=== PATIENT | male | born 1970 | race Caucasian/White ===

== ENCOUNTER 2021-01-06 02:50 | Outpatient (CLI) | payer SELFPAY ==
[2021-01-06 12:34] LABS: Calculated LDL 150 mg/dL (<100); Cholesterol 224 mg/dL (<200); HDL Cholesterol 55 mg/dL (40-60); Triglyceride 96 mg/dL (<150)
[2021-01-06 12:39] LABS: Hemoglobin A1C 5.7 % (<5.7)
== END 2021-01-06 02:51 | disposition home or self-care (01) ==
PROVIDERS: Nurse Practitioner Family; PCP Emergency Medicine; Visit Provider Emergency Medicine
DX: Z13.220 Encounter for screening for lipoid disorders (principal); Z13.1 Encounter for screening for diabetes mellitus
CPT/HCPCS: 36415; 80061; 83036

== ENCOUNTER 2023-04-11 21:55 | Outpatient (REF) | payer SELFPAY ==
[2023-04-11 22:38] LABS: Anion Gap 10.7 mmol/L (3-11); BUN 19 mg/dL (7-18); CO2 24.3 mmol/L (21.0-32.0); CREATININE 1.2 mg/dL (0.70-1.30); Calcium 9.1 mg/dL (8.5-10.1); Chloride 105 mmol/L (98-107); Estimated GFR 71.86 (mL/min/1.73m2); Glucose 101 mg/dL (74-106); Potassium 3.9 mmol/L (3.5-5.1); Sodium 140 mmol/L (136-145)
== END 2023-04-11 21:56 | disposition home or self-care (01) ==
LOC: LBN 21:55
PROVIDERS: PCP Nurse Practitioner Family; Visit Provider Nurse Practitioner Family
DX: I10 Essential (primary) hypertension (principal)
CPT/HCPCS: 80048

== ENCOUNTER 2023-04-12 11:35 | Outpatient (CLI) | payer SELFPAY ==
--- NOTE | 2023-04-12 13:22 | DI.RAD_ITS ---
Exam(s) XR KNEE RT 3V AP,LAT,JILL EXAM: XR KNEE RT 3V AP,LAT,JILL CLINICAL HISTORY: atraumatic RT KNEE PAIN, M25.561. TECHNIQUE: 2D digital imaging was performed. Three views. COMPARISON: No exams were available for comparison FINDINGS: BONES: No acute fracture is present. No bony destructive lesion is seen. JOINTS: There is moderate narrowing of the medial femoral tibial joint space. There is mild periarti cular spurring. No joint effusion is seen. SOFT TISSUE: Normal. 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 DATA REPOSITORY: RADIATION DOSE DELIVERED:
--- NOTE | 2023-04-12 13:22 | DI.RAD_ITS ---
Exam(s) XR SHOULDER LT COMPLETE 2+V EXAM: XR SHOULDER LT COMPLETE 2+V CLINICAL HISTORY: atraumatic LT SHOULDER PAIN, M25.512. TECHNIQUE: 2D digital imaging was performed. Five views. COMPARISON: CR RIGHT SHOULDER COMPLETE from 07/16/2012 FINDINGS: BONES: No acute fracture is present. No bony destructive lesion is seen. JOINTS: No dislocation present. [id number] spurring of the AC joint. Mild spurring at the gle noid. Glenohumeral joint space is maintained. SOFT TISSUE: Normal. IMPRESSION: Mild degenerative changes. DATA REPOSITORY: RADIATION DOSE DELIVERED:
== END 2023-04-12 11:55 ==
LOC: DI 11:36
PROVIDERS: PCP Nurse Practitioner Family; Visit Provider Nurse Practitioner Family
DX: M19.012 Primary osteoarthritis, left shoulder (principal); M17.11 Unilateral primary osteoarthritis, right knee
CPT/HCPCS: 73562; 73030

== ENCOUNTER 2024-10-29 07:29 | Observation (INO) | payer SELFPAY ==
[2024-10-29] VITALS (22 sets, daily range): BP systolic 108–178; BP diastolic 68–97; PULSE 52–90; RESP 11–21; TEMP 35.8–36.8; O2SAT 90–97
--- NOTE | 2024-10-29 07:30 | RT.EKG_ITS ---
APPROVED REPORT Exam: Resting ECG Reason for Exam: Chest Pain Patient Location: E HR:84 bpm ECG Measurements Heart Rate 84 AXIS DE 173 P 41 QRSd 110 QRS 47 QT 368 T 49 QTc 435 Conclusion Sinus rhythm...normal P axis, V-rate 60- 99
[2024-10-29 08:07] LABS: Abs Immature Grans 0.05 10^3/uL (0.0-0.06); Absolute Basophil Count 0.04 10^3/uL (0.0-0.2); Absolute Lymphocyte Count 1.82 10^3/uL (1.2-3.4); Absolute Monocyte Count 0.69 10^3/uL (0.1-0.8); Absolute Neutrophil Count 4.64 10^3/uL (1.2-6.7); Basophils % 0.5 %; HCT 45.9 % (40.0-50.0); HGB 15.6 g/dL (13.5-17.5); Immature Grans % 0.7 %; Lymphocytes % 24.1 %; MCH 31.4 pg (27.0-33.0); MCV 92 fL (80-95); MPV 8.7 fL (8.0-11.0); Monocytes % 9.2 %; Neutrophils % 61.5 %; Platelet Count 258 10^3/uL (130-400); RBC 4.97 10^6/uL (4.36-5.78); RDW 11.8 % (11.8-14.1); RDW-SD 39.9 fL; WBC 7.54 10^3/uL (4.4-10.8)
[2024-10-29 08:20] LABS: PTT Activated 24.7 sec (20.6-30.2)
[2024-10-29 08:28] LABS: ALT 47 U/L (16-63); AST 26 U/L (15-37); Albumin 3.9 g/dL (3.4-5.0); Alkaline Phosphatase 93 U/L (46-116); Anion Gap 9.1 mmol/L (3-11); BUN 20 mg/dL (7-18); Bilirubin, Total 0.54 mg/dL (0.2-1.0); CO2 24.9 mmol/L (21.0-32.0); CREATININE 1.1 mg/dL (0.70-1.30); Calcium 9.1 mg/dL (8.5-10.1); Chloride 105 mmol/L (98-107); Estimated GFR 79.28 (mL/min/1.73m2); Glucose 111 mg/dL (74-106); Magnesium 1.7 mg/dL (1.8-2.4); Sodium 139 mmol/L (136-145); Total Protein 7.7 g/dL (6.4-8.2); Troponin I 5 ng/L (<or=76)
--- NOTE | 2024-10-29 08:37 | ED.GENADUL_ITS ---
Discharge Plan Disposition Patient Disposition: Admit to [facility] Discharge Details Clinical Impression: Acute chest pain, Hypertension Admit Date/Time: 10/29/24 11:07 Admit Provider: Louis Garduno Attending Provider: Louis Garduno Primary Care Provider: Mark Guerrero ED Provider: Ozzy Luu Discharge Data Discharge Date/Time-TO BE ENTERED AT DEPARTURE: 10/29/24 11:58 HPI General Mode of arrival: ambulatory . Date/Time Provider Initiated Documentation: 10/29/24 07:35 . Limitations to Documentation: no limitations . Information obtained by: patient . HPI Narrative: 54-year-old male with history of hypertension, hyperlipidemia, asthma, obesity, here with chief complaint of chest pain. Patient notes he started to experience left upper arm pain radiating to his left chest around 6 AM. Pain came on while ambulating but not during exertional activity and has persisted. Pain initially was severe 8/10 and now more dull 2/10 but still present. Pain feels different than typical aches and pains. No associated shortness of breath. No nausea. No leg swelling or calf pain. No recent immobility. Patient denies having cardiac stress test in the past. Related Data Home Medications ?Medication ?Instructions ?Recorded ?Confirmed nebulizers (MisterNeb Nebulizer 01/31/13 05/02/24 System) albuterol sulfate 2.5 mg/3 mL 2.5 mg (3 mL) inhalation Q6H PRN 05/02/24 10/29/24 (0.083 %) solution for nebulization ##1 lisinopril 10 mg tablet 10 mg PO DAILY #90 tabs 05/02/24 10/29/24 mometasone 100 mcg/actuation HFA 1 puff inhalation BID #13 grams 05/02/24 aerosol inhaler (Asmanex HFA) albuterol sulfate 90 mcg/actuation 2 puff inhalation QID PRN 10/29/24 10/29/24 aerosol inhaler Previous Rx's ?Medication ?Instructions ?Recorded albuterol sulfate 2.5 mg/3 mL 2.5 mg (3 mL) inhalation Q6H PRN 05/02/24 (0.083 %) solution for nebulization ##1 lisinopril 10 mg tablet 10 mg PO DAILY #90 tabs 05/02/24 mometasone 100 mcg/actuation HFA 1 puff inhalation BID #13 grams 05/02/24 aerosol inhaler (Asmanex HFA) Allergies Allergy/AdvReac Type Severity Reaction Status Date / Time No Known Allergies Allergy Verified 10/29/24 07:38 General Stated Complaint: Chest Pain ERAN: 3 Review of Systems All systems reviewed & are unremarkable except as noted in HPI and below Constitutional Constitutional: Denies fever(s) Cardiovascular Cardiovascular: Reports as per HPI Exam Const General: cooperative and no acute distress HENWV Mouth: moist mucous membranes Eyes Conjunctivae: normal conjunctivae Sclera: normal sclerae Resp Auscultation: clear to auscultation bilaterally, no rales, no rhonchi and no wheezes Cardio Rate: regular rate and not tachycardic Rhythm: regular rhythm GI Palpation: soft, not firm, no guarding, no masses, not rigid and nontender Skin General skin exam: no rashes or lesions noted Neuro General: patient alert, patient awake and tone normal Extrem General: no calf tenderness and no edema Psych Appearance: grossly normal Course Vital Signs Vital signs: Vital Signs Temperature 36.8 C 10/29/24 07:33 Pulse 87 10/29/24 07:33 Respiratory Rate 18 10/29/24 07:33 Blood Pressure 178/86 H 10/29/24 07:33 Pulse Oximetry 96 10/29/24 07:33 Temperature 36.8 C 10/29/24 07:33 Pulse 87 10/29/24 07:33 Respiratory Rate 18 10/29/24 07:52 Respiratory Effort Normal 10/29/24 07:52 Respiratory Depth Normal 10/29/24 07:52 Respiratory Pattern Normal 10/29/24 07:52 Blood Pressure 178/86 H 10/29/24 07:33 Pulse Oximetry 96 10/29/24 07:33 Pain Level 5 10/29/24 07:52 Lab/Test Results Lab/Test Results: Laboratory Tests Range/Units 10/29/24 07:47 WBC (4.4-10.8) 10^3/uL 7.54 RBC (4.36-5.78) 10^6/uL 4.97 Hgb (13.5-17.5) g/dL 15.6 Hct (40.0-50.0) % 45.9 MCV (80-95) fL 92 MCH (27.0-33.0) pg 31.4 MCHC (32.0-36.0) % 34.0 RDW (11.8-14.1) % 11.8 Plt Count (130-400) 10^3/uL 258 MPV (8.0-11.0) fL 8.7 Immature Gran % % 0.7 Neutrophils % % 61.5 Lymphocytes % % 24.1 Monocytes % % 9.2 Eosinophils % % 4.0 Basophils % % 0.5 Nucleated RBC % (0.0-0.3) % 0.0 Absolute Neutrophils (1.2-6.7) 10^3/uL 4.64 Absolute Lymphocytes (1.2-3.4) 10^3/uL 1.82 Absolute Monocytes (0.1-0.8) 10^3/uL 0.69 Absolute Eosinophils (0.0-0.7) 10^3/uL 0.30 Absolute Basophils (0.0-0.2) 10^3/uL 0.04 APTT (20.6-30.2) sec 24.7 Sodium (136-145) mmol/L 139 Potassium (3.5-5.1) mmol/L 4.0 Chloride (98-107) mmol/L 105 Carbon Dioxide (21.0-32.0) mmol/L 24.9 Anion Gap (3-11) mmol/L 9.1 BUN (7-18) mg/dL 20 H Creatinine (0.70-1.30) mg/dL 1.1 Est GFR (CKD-EPI 2020) (mL/min/1.73m2) 79.28 Glucose (74-106) mg/dL 111 H Calcium (8.5-10.1) mg/dL 9.1 Magnesium (1.8-2.4) mg/dL 1.7 L Total Bilirubin (0.2-1.0) mg/dL 0.54 AST (15-37) U/L 26 ALT (16-63) U/L 47 Alkaline Phosphatase (46-116) U/L 93 Troponin I (<or=76) ng/L 5 Total Protein (6.4-8.2) g/dL 7.7 Albumin (3.4-5.0) g/dL 3.9 Medical Decision Making 840 --54-year-old male with history of hypertension, hyperlipidemia, obesity, asthma, here with left upper arm and left chest pain that started around 6 AM today, now dull and mild ache. Patient is hypertensive on arrival. He saturating well in no respiratory distress. Screening EKG was reviewed and interpreted by me: Please report, sinus rhythm 84 bpm, normal axis, nondiagnostic. Concern for ACS. Patient has significant risk factors and elevated heart score. Plan to check troponin and trend. I will give aspirin and nitroglycerin sublingual. -- Chest x-ray interpreted by radiology: No acute findings. 1058 -- Patient reassessed. Initial trop and delta 1 hr trop negative. -- Given elevated HEART score with significant risk factors and cocnerning history consider unstable angina - plan to hospitalize for further monitoring and serial troponins and cardiac stress testing. Case discussed with hospitalist Dr. Garduno. He will accept the patient for admission. Lab Data Lab results reviewed: Yes I reviewed the patient's lab results. Quality:SDOH Health Related Social Needs: Health related social needs problems related to housin g/economic circumstances (Z59.89) PFSH All Active Problems (Updated 11/05/24 @ 07:57 by Ozzy Luu MD) Acute chest pain (Acute) Bilateral impacted cerumen (Acute) Left shoulder pain (Acute) Right knee pain (Acute) Obesity (BMI 30-39.9) (Acute) Asthma (Chronic) Hyperlipemia (Acute) Hypertension (Chronic) Family History Mother Essential hypertension Father Asthma Sister No problems noted. Sister No problems noted. Sister No problems noted. Sister No problems noted. Brother Neurological disease Brother Neurological disease Brother Neurological disease Brother Neurological disease Brother Neurological disease Social History Smoking/Tobacco Use Status: Current every day Tobacco Type: smokeless tobacco Tobacco: How many years used: 40 Smokeless tobacco user: snuff Quit status: not considering quitting Second Hand Exposure: Yes Smoking risk assessment performed?: Yes Alcohol Intake: current Alcohol Intake frequency: 3 or more drinks per day Alcohol type: beer Drug use: Never Substance use type: does not use Adopted: No Caregiver/Support person: No Household members: none Housing: house Number of Children: 3 number of grandchildren: 1 Communication Needs: Corrective Lenses Education Level: high school Do you need help understanding health information?: Rarely 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 Pets and animals: No Sexually active: Yes Do you think of yourself as: straight/heterosexual Current gender identity: male What is your relationship status?: How often do you talk on the phone with friends or family?: twice per week How often do you get together with friends or relatives?: three or more times per week How often do you attend roman catholic or mandaen services?: decline to answer Do you belong to any clubs or organized social groups?: yes Panel score (0-1 are the most socially isolated patients): 2 What type of physical activity do you participate in: none Frequency: does not exercise Noelle/Jew: None Special noelle needs: No Seatbelt use: always Drive intox or ride w/intox dedicated truck driver: No Firearms in home: Yes Firearms unloaded and locked: Yes Do you feel safe at home: Yes Victim of physical abuse: No Victim of emotional abuse: No Victim of sexual abuse: No Would you like helpful sources: No PAWSS Have you Been Recently Intoxicated or Drunk Within the Last 30 days?: No Have you Ever Experienced Previous Episodes of Alcohol Withdrawal?: No Have you ever Experienced Withdrawal Seizures?: No Have you ever Experienced Delirium Tremens(DT)s?: No Have you ever undergone Alcohol Rehabilitation Treatment (i.e, inpt ot outpatient treatment programs)?: No Have you ever Experienced Blackouts?: No Have you ever Combined Alcohol with other Downers within the last 90 days?: No Have you ever Combined Alcohol with any other Substance of Abuse during the last 90 days?: No Result: 0
[2024-10-29 08:39] LABS: D-Dimer 256 ng/mlFEU (<500)
--- NOTE | 2024-10-29 08:45 | DI.RAD_ITS ---
Exam(s) XR PORTABLE CHEST AP EXAM: XR PORTABLE CHEST AP CLINICAL HISTORY: CP TECHNIQUE: 2D digital imaging was performed. COMPARISON: No exams were available for comparison FINDINGS: LUNGS: Clear. No pleural abnormality seen. HEART: Normal size. AORTA: Normal diameter. BONES: Unremarkable for age. Soft tissues: Unremarkable. IMPRESSION: No acute findings. DATA REPOSITORY: RADIATION DOSE DELIVERED:
[2024-10-29] MEDS: Aspirin 81 MG CHEW 324 MG CH (08:49)
[2024-10-29 09:20] LABS: Troponin I 4 ng/L (<or=76)
[2024-10-29 11:36] LABS: Troponin I < 4 ng/L (<or=76)
--- NOTE | 2024-10-29 11:55 | W.PC.ACHO ---
Registration Status: Primary Language: Preferred Language: ED Information & Data Chief Complaint Chest Pain 10/29/24 08:42 Triage Note 5/10 CP radiate down left 10/29/24 07:33 arm, started x1hr ago walking at work when started Most Recent Vital Signs Temperature 36.8 C 10/29/24 07:33 Pulse 61 10/29/24 11:46 Pulse 64 10/29/24 11:46 Respiratory Rate 18 10/29/24 11:46 Respiratory Effort Normal 10/29/24 07:52 Respiratory Depth Normal 10/29/24 07:52 Respiratory Pattern Normal 10/29/24 07:52 Blood Pressure 130/79 10/29/24 11:46 Blood Pressure Mean 91 10/29/24 11:46 Pulse Oximetry 95 10/29/24 11:46 Pain Level 5 10/29/24 07:52 Allergies No Known Allergies Allergy (Verified 10/29/24 07:38) Precautions Isolation Standard precaution 10/29/24 07:50 IV IV Catheter Type [Left Saline Lock Antecubital] IV Catheter Gauge [Left 18 Antecubital] Diet Orders Category Date Time Status Heart Healthy Eating [DIET] Nutrition 10/29/24 Lunch Active Diagnostics 10/29/24 10/29/24 10/29/24 Range/Units 11:13 11:04 08:52 WBC Pending (4.4-10.8) 10^3/uL RBC Pending (4.36-5.78) 10^6/uL Hgb Pending (13.5-17.5) g/dL Hct Pending (40.0-50.0) % MCV Pending (80-95) fL MCH Pending (27.0-33.0) pg MCHC Pending (32.0-36.0) % RDW Pending (11.8-14.1) % Plt Count Pending (130-400) 10^3/uL MPV Pending (8.0-11.0) fL Immature Gran % Pending % Neutrophils % Pending % Lymphocytes % Pending % Monocytes % Pending % Eosinophils % Pending % Basophils % Pending % Nucleated RBC % (0.0-0.3) % Absolute Neutrophils Pending (1.2-6.7) 10^3/uL Absolute Lymphocytes Pending (1.2-3.4) 10^3/uL Absolute Monocytes Pending (0.1-0.8) 10^3/uL Absolute Eosinophils Pending (0.0-0.7) 10^3/uL Absolute Basophils Pending (0.0-0.2) 10^3/uL APTT (20.6-30.2) sec D-Dimer (<500) ng/mlFEU Sodium Pending (136-145) mmol/L Potassium Pending (3.5-5.1) mmol/L Chloride Pending (98-107) mmol/L Carbon Dioxide Pending (21.0-32.0) mmol/L Anion Gap Pending (3-11) mmol/L BUN Pending (7-18) mg/dL Creatinine Pending (0.70-1.30) mg/dL Est GFR (CKD-EPI 2020) Pending (mL/min/1.73m2) Glucose Pending (74-106) mg/dL Calcium Pending (8.5-10.1) mg/dL Magnesium Pending (1.8-2.4) mg/dL Total Bilirubin (0.2-1.0) mg/dL AST (15-37) U/L ALT (16-63) U/L Alkaline Phosphatase (46-116) U/L Troponin I < 4 4 (<or=76) ng/L Total Protein (6.4-8.2) g/dL Albumin (3.4-5.0) g/dL TSH Pending 10/29/24 Range/Units 07:47 WBC 7.54 (4.4-10.8) 10^3/uL RBC 4.97 (4.36-5.78) 10^6/uL Hgb 15.6 (13.5-17.5) g/dL Hct 45.9 (40.0-50.0) % MCV 92 (80-95) fL MCH 31.4 (27.0-33.0) pg MCHC 34.0 (32.0-36.0) % RDW 11.8 (11.8-14.1) % Plt Count 258 (130-400) 10^3/uL MPV 8.7 (8.0-11.0) fL Immature Gran % 0.7 % Neutrophils % 61.5 % Lymphocytes % 24.1 % Monocytes % 9.2 % Eosinophils % 4.0 % Basophils % 0.5 % Nucleated RBC % 0.0 (0.0-0.3) % Absolute Neutrophils 4.64 (1.2-6.7) 10^3/uL Absolute Lymphocytes 1.82 (1.2-3.4) 10^3/uL Absolute Monocytes 0.69 (0.1-0.8) 10^3/uL Absolute Eosinophils 0.30 (0.0-0.7) 10^3/uL Absolute Basophils 0.04 (0.0-0.2) 10^3/uL APTT 24.7 (20.6-30.2) sec D-Dimer 256 (<500) ng/mlFEU Sodium 139 (136-145) mmol/L Potassium 4.0 (3.5-5.1) mmol/L Chloride 105 (98-107) mmol/L Carbon Dioxide 24.9 (21.0-32.0) mmol/L Anion Gap 9.1 (3-11) mmol/L BUN 20 H (7-18) mg/dL Creatinine 1.1 (0.70-1.30) mg/dL Est GFR (CKD-EPI 2020) 79.28 (mL/min/1.73m2) Glucose 111 H (74-106) mg/dL Calcium 9.1 (8.5-10.1) mg/dL Magnesium 1.7 L (1.8-2.4) mg/dL Total Bilirubin 0.54 (0.2-1.0) mg/dL AST 26 (15-37) U/L ALT 47 (16-63) U/L Alkaline Phosphatase 93 (46-116) U/L Troponin I 5 (<or=76) ng/L Total Protein 7.7 (6.4-8.2) g/dL Albumin 3.9 (3.4-5.0) g/dL TSH Intake and Output - 24 Hour Total 10/29/24 07:29 thru 10/29/24 11:19 Intake Total 10 Balance 10 Weight 103 kg Intake: IV 10 Falls Risk Assessment History of Falls No History 10/29/24 07:52 Fall Total Score 0 10/29/24 07:52 Level of Risk Standard/Low Risk 10/29/24 07:52 v v v v v v v v v Sending and/or Receiving Nurses: Please use comment section below to note any information pertinent to the patient hand-off not included above. Information / Comments: Report received from: Sharon given to fiona JARAMILLO at [phone]
[2024-10-29] MEDS: Enoxaparin 40 MG/0.4 ML SYR SC (12:24)
[2024-10-29] MEDS: Normal Saline Flush 10 ML SYR IVP ×2 (12:24→20:05)
--- NOTE | 2024-10-29 12:57 | PHA.REVIEW2 ---
Pharmacy Admission Review Admission Clinical Review Admission Pharmacy Review: No Known Allergies Allergy (Verified 10/29/24 07:38) Resuscitation Status Full Code Height 5 ft 5 in Weight 101.605 kg Pharmacy Admission Review Renal Dosing Renal Dosing: BUN 20 mg/dL (7-18) H 10/29/24 07:47 Creatinine 1.1 mg/dL (0.70-1.30) 10/29/24 07:47 Medications needing adjustments: Reviewed (CrCl 83.22 mL/min) List of meds needing interventions: Current medications are okay Anticoagulation Anticoagulation: Hgb 15.6 g/dL (13.5-17.5) 10/29/24 07:47 Hct 45.9 % (40.0-50.0) 10/29/24 07:47 Plt Count 258 10^3/uL (130-400) 10/29/24 07:47 Creatinine 1.1 mg/dL (0.70-1.30) 10/29/24 07:47 DVT Prophylaxis: Reviewed Medications: Enoxaparin (40mg daily) Relevant Labs Relevant Labs: Sodium 139 mmol/L (136-145) 10/29/24 07:47 Potassium 4.0 mmol/L (3.5-5.1) 10/29/24 07:47 Chloride 105 mmol/L (98-107) 10/29/24 07:47 Magnesium 1.7 mg/dL (1.8-2.4) L 10/29/24 07:47 Electrolytes, C-Reactive P, ESR: Reviewed (Mg 1.7, Repeat labs pending) Cardiac Review Cardiac Review: Troponin I < 4 ng/L (<or=76) 10/29/24 11:04 Blood Pressure 137/90 1201 Blood Pressure 130/79 1146 Blood Pressure 139/91 1131 Blood Pressure 136/89 1116 Blood Pressure 128/80 1101 Blood Pressure 123/77 1046 Blood Pressure 146/94 1030 Blood Pressure 120/76 1016 Blood Pressure 137/97 1001 Blood Pressure 125/91 0946 Blood Pressure 127/97 0931 Blood Pressure 140/81 0916 BP, HR, EF%: Reviewed (HR WNL) List meds needing interventions: Has order for lisinopril 10mg daily and PRN nitroglycerin. Received a dose of aspirin 324mg in ED today at 0849. QTc Review QTc: Reviewed (435 from 10/29/24) IV to PO Switch IV Medications: Reviewed Home Meds Home Med List reviewed: Reviewed Relevent Home Meds Not ordered & why?: albuterol nebulizer and HFA (PRN) Current Meds Current Medication Order Review: Intervened Comments: Changed ED IV access
[2024-10-29 15:25] LABS: Abs Immature Grans 0.04 10^3/uL (0.0-0.06); Absolute Basophil Count 0.04 10^3/uL (0.0-0.2); Absolute Lymphocyte Count 2.44 10^3/uL (1.2-3.4); Absolute Monocyte Count 0.81 10^3/uL (0.1-0.8); Absolute Neutrophil Count 3.85 10^3/uL (1.2-6.7); Basophils % 0.5 %; Eosinophils % 5.3 %; HGB 15.1 g/dL (13.5-17.5); Immature Grans % 0.5 %; Lymphocytes % 32.2 %; MCH 31.5 pg (27.0-33.0); MCHC 32.8 % (32.0-36.0); MCV 96 fL (80-95); MPV 8.4 fL (8.0-11.0); Monocytes % 10.7 %; Neutrophils % 50.8 %; Platelet Count 243 10^3/uL (130-400); RDW 11.9 % (11.8-14.1); RDW-SD 41.2 fL; WBC 7.58 10^3/uL (4.4-10.8)
--- NOTE | 2024-10-29 15:31 | HPE_ITS ---
Date of service: 10/29/24 Time of Service: 15:31 Assessment and Plan Assessment and plan (1) Chest pain: Status: Acute Assessment and plan: Chest pain Telemetry Serial troponins Echo 10/30 am Stress test 16 am (stress lab notified and has room) NPO @ [place] for stress test prn nitroglycerin for chest pain Received aspirin in ED third troponin pending Oxygen as needed for chest pain or desat Labs in am History of Present Illness History of Present Illness Chief Complaint: Chest pain Narrative: This is a 54-year-old male with a medical history significant for hypertension, hyperlipidemia, obesity, and asthma who presented to the [facility] ED with complaints of left upper arm and left chest pain. The pain began around 6 AM today and was initially severe, rated 8/10. The patient describes the pain as radiating from the left upper arm to the left chest, but notes that it feels different from typical aches and pains. The pain subsided somewhat to a dull, mild ache (2/10), but persisted and he came in. The pain was noted while ambulating, though not during exertional activity. There is no associated shortness of breath, nausea, or leg swelling. The patient denies recent immobility and has not had a cardiac stress test in the past. On presentation, the patient was hypertensive but saturating well, with no signs of respiratory distress. The initial EKG showed sinus rhythm at 84 bpm, a normal axis, and is interpreted as nondiagnostic for acute myocardial injury. There is concern for acute coronary syndrome due to the patient's symptoms and significant cardiovascular risk factors (hypertension, hyperlipidemia, obesity). The patient has an elevated HEART score, further raising suspicion for ACS. Treatment in the ED: serial troponin levels to assess for myocardial injury, administered aspirin and sublingual nitroglycerin to address potential ACS, Labs in the ED: unremarkable; Troponin @ 0852 -- 4; Troponin @ 1104--4 Chest xray as read by the radiologist - no acute findings. Patient is placed on the medical floor for observation and further testing. Patient is a full code. Review of Systems All systems reviewed & are unremarkable except as noted in HPI and below PFSH All Active Problems (Updated 10/29/24 @ 15:52 by Sheryl Tavares NP) Chest pain (Acute) Bilateral impacted cerumen (Acute) Left shoulder pain (Acute) Right knee pain (Acute) Obesity (BMI 30-39.9) (Acute) Asthma (Chronic) Hyperlipemia (Acute) Hypertension (Chronic) Family History Mother Essential hypertension Father Asthma Sister No problems noted. Sister No problems noted. Sister No problems noted. Sister No problems noted. Brother Neurological disease Brother Neurological disease Brother Neurological disease Brother Neurological disease Brother Neurological disease Social History Smoking/Tobacco Use Status: Current every day Tobacco Type: smokeless tobacco Tobacco: How many years used: 40 Smokeless tobacco user: snuff Quit status: not considering quitting Second Hand Exposure: Yes Smoking risk assessment performed?: Yes Alcohol Intake: current Alcohol Intake frequency: 3 or more drinks per day Alcohol type: beer Drug use: Never Substance use type: does not use Adopted: No Caregiver/Support person: No Household members: none Housing: house Number of Children: 3 number of grandchildren: 1 Communication Needs: Corrective Lenses Education Level: high school Do you need help understanding health information?: Rarely 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 Pets and animals: No Sexually active: Yes Do you think of yourself as: straight/heterosexual Current gender identity: male What is your relationship status?: How often do you talk on the phone with friends or family?: twice per week How often do you get together with friends or relatives?: three or more times per week How often do you attend yazidism or jew services?: decline to answer Do you belong to any clubs or organized social groups?: yes Panel score (0-1 are the most socially isolated patients): 2 What type of physical activity do you participate in: none Frequency: does not exercise Noelle/Christianity: None Special noelle needs: No Seatbelt use: always Drive intox or ride w/intox professional driver: No Firearms in home: Yes Firearms unloaded and locked: Yes Do you feel safe at home: Yes Victim of physical abuse: No Victim of emotional abuse: No Victim of sexual abuse: No Would you like helpful sources: No Meds Allergies and Home Medications Allergies Allergy/AdvReac Type Severity Reaction Status Date / Time No Known Allergies Allergy Verified 10/29/24 07:38 Home Medications ?Medication ?Instructions ?Recorded ?Confirmed ?Type nebulizers (MisterNeb Nebulizer 01/31/13 05/02/24 History System) albuterol sulfate 2.5 mg/3 mL 2.5 mg (3 mL) inhalation Q6H PRN 05/02/24 10/29/24 Rx (0.083 %) solution for nebulization ##1 lisinopril 10 mg tablet 10 mg PO DAILY #90 tabs 05/02/24 10/29/24 Rx mometasone 100 mcg/actuation HFA 1 puff inhalation BID #13 grams 05/02/24 10/29/24 Rx aerosol inhaler (Asmanex HFA) albuterol sulfate 90 mcg/actuation 2 puff inhalation QID PRN 10/29/24 10/29/24 History aerosol inhaler Exam Const General: cooperative and no acute distress HENMT Mouth: moist mucous membranes Eyes Conjunctivae: normal conjunctivae Sclera: normal sclerae Resp Auscultation: clear to auscultation bilaterally, no rales, no rhonchi and no wheezes Cardio Rate: regular rate and not tachycardic Rhythm: regular rhythm GI Palpation: soft, not firm, no guarding, no masses, not rigid and nontender Skin General skin exam: no rashes or lesions noted Neuro General: patient alert, patient awake and tone normal Extrem General: no calf tenderness and no edema Psych Appearance: grossly normal Results Labs 10/29/24 15:15 10/29/24 15:15 Labs: Laboratory Results - last 24 hr 10/29/24 10/29/24 10/29/24 07:47 08:52 11:04 WBC 7.54 RBC 4.97 Hgb 15.6 Hct 45.9 MCV 92 MCH 31.4 MCHC 34.0 RDW 11.8 Plt Count 258 MPV 8.7 Immature Gran % 0.7 Neutrophils % 61.5 Lymphocytes % 24.1 Monocytes % 9.2 Eosinophils % 4.0 Basophils % 0.5 Nucleated RBC % 0.0 Absolute Neutrophils 4.64 Absolute Lymphocytes 1.82 Absolute Monocytes 0.69 Absolute Eosinophils 0.30 Absolute Basophils 0.04 APTT 24.7 D-Dimer 256 Sodium 139 Potassium 4.0 Chloride 105 Carbon Dioxide 24.9 Anion Gap 9.1 BUN 20 H Creatinine 1.1 Est GFR (CKD-EPI 2020) 79.28 Glucose 111 H Calcium 9.1 Magnesium 1.7 L Total Bilirubin 0.54 AST 26 ALT 47 Alkaline Phosphatase 93 Troponin I 5 4 < 4 Total Protein 7.7 Albumin 3.9 10/29/24 15:15 WBC 7.58 RBC 4.80 Hgb 15.1 Hct 46.0 MCV 96 H D MCH 31.5 MCHC 32.8 RDW 11.9 Plt Count 243 MPV 8.4 Immature Gran % 0.5 Neutrophils % 50.8 Lymphocytes % 32.2 Monocytes % 10.7 Eosinophils % 5.3 Basophils % 0.5 Nucleated RBC % 0.0 Absolute Neutrophils 3.85 Absolute Lymphocytes 2.44 Absolute Monocytes 0.81 H Absolute Eosinophils 0.40 Absolute Basophils 0.04 APTT D-Dimer Sodium Potassium Chloride Carbon Dioxide Anion Gap BUN Creatinine Est GFR (CKD-EPI 2020) Glucose Calcium Magnesium Total Bilirubin AST ALT Alkaline Phosphatase Troponin I Total Protein Albumin Last Vital Signs Temp 36.3 C L 10/29/24 12:01 Pulse 64 10/29/24 12:01 Resp 16 10/29/24 12:01 BP 137/90 10/29/24 12:01 Pulse Ox 97 10/29/24 12:01 PAWSS Have you Been Recently Intoxicated or Drunk Within the Last 30 days?: No Have you Ever Experienced Previous Episodes of Alcohol Withdrawal?: No Have you ever Experienced Withdrawal Seizures?: No Have you ever Experienced Delirium Tremens(DT)s?: No Have you ever undergone Alcohol Rehabilitation Treatment (i.e, inpt ot outpatient treatment programs)?: No Have you ever Experienced Blackouts?: No Have you ever Combined Alcohol with other Downers within the last 90 days?: No Have you ever Combined Alcohol with any other Substance of Abuse during the last 90 days?: No Positive Blood Alcohol level on Presentation? [PCS.BAL]: No Evidence of Increased Autonomic Activity (i.e. HR>120, tremor, sweating, agitation, nausea)?: No Result: 0 Time Spent Time spent with Patient: 40-54 minutes Time was spent: preparing to see the patient(eg.review tests), obtaining and/or reviewing separately otained hiistory, ordering medications,tests, procedures, referring, communicating with other health landcare facilitator, indepentently interpreting results, counseling the patient and care coordination
[2024-10-29 15:36] LABS: Anion Gap 3.9 mmol/L (3-11); BUN 19 mg/dL (7-18); CO2 31.1 mmol/L (21.0-32.0); CREATININE 1.2 mg/dL (0.70-1.30); Calcium 9.2 mg/dL (8.5-10.1); Chloride 106 mmol/L (98-107); Estimated GFR 71.42 (mL/min/1.73m2); Glucose 92 mg/dL (74-106); Magnesium 2.2 mg/dL (1.8-2.4); Potassium 4.2 mmol/L (3.5-5.1); Sodium 141 mmol/L (136-145)
[2024-10-29 16:05] LABS: Troponin I 5 ng/L (<or=76)
[2024-10-29 16:11] LABS: TSH (W/Ref FT4) 1.16 uIU/mL (0.36-3.74)
--- NOTE | 2024-10-30 | ETT_ITS ---
APPROVED REPORT Exam: Exercise Treadmill Patient Location: In-Patient Room/Bed: 230 Stress Nurse: Nora Samuel RN Ordering Provider:SANDRA CARRASCO, Contact Number: BMI: 37.27 Baseline Rhythm: Sinus Rhythm Indications: Chest pain, Medical History Medical History: HLD, HTN, obesity, asthma Cardiac Medications: Albuterol sulfate, lisinopril, asmanex Allergies: No known drug allergies Cardiac Risk Factors: HTN, HLD, asthma, smokeless tobacco user, obesity Previous Cardiac Procedures: None Pretest Chest Pain Characteristics: None Exercise History: Indeterminate Physical Disabilities: None Lung Sounds: Diminshed throughout, coarse wheezes throughout Heart Sounds: Regular Stress Test Details Test: Exercise stress testing was performed using a Harsh protocol. Rest Stress HR Resting HR Supine: 67 bpm Max Heart Rate (APMHR): 165 bpm Resting HR Standin bpm Target HR (85% APMHR): 140 bpm Max HR Achieved: 145 bpm % of APMHR: 88 Recovery HR: 79 bpm HR response to stress: Normal HR response to stress BP Resting BP Supine: 140/82 mmHg Resting BP Standin/90 mmHg Max BP: 210/98 mmHg Recovery BP: 150/96 mmHg BP response to stress: Normal blood pressure response to stress. ECG Resting ECG: Sinus Rhythm Ectopy: None Stress ECG: Sinus Tachycardia ST Change: No significant ST segment changes noted Arrhythmia: Occasional PVC's, trigeminy Recovery ECG: Sinus Rhythm Recovery ST Change: No significant ST segment changes noted Recovery Arrhythmia: Rare PAC Clinical Reason for Termination: Target HR Achieved, mod SOB Stress Symptoms: Mod SOB Exercise duration: 06 min50 sec Highest Stage Reached: Stage 3: 3.4 mph at 14% grade. Exercise capacity: 8.43 METs Angina Score: None [place] Treadmill Score: 6.1 Rate Pressure Product: [id number] Stress ECG Conclusion 1. Resting electrocardiogram was normal 2. Patient exercised on the Harsh protocol completed workload of 8.43 METS 3. Normal heart rate and blood pressure response to exercise. The patient achieved 88% of maximum pr edicted for age 4. There was no electrocardiographic evidence of myocardial ischemia 5. Sporadic PVCs were seen [place] Treadmill Score is 6.1 which is Low risk. Stress Test Summary STAGE Time (mins) Speed (mph) Grade (%) HR BP SpO2 SYMPTOMS METS Supine 67 140/82 92% Standing 74 160/90 1 3 1.7 10 106 162/92 93% 4.5 2 6 2.5 12 124 180/94 93% Mod SOB 7 3 9 3.4 14 143 Mod SOB 10 1 min recovery 121 210/98 94% Mod SOB 3 min recovery 98 200/101 96% 6 min recovery 88 170/90 95% 9 min recovery 79 150/96 93% SOB resolved
[2024-10-30 03:31] VITALS: BP 132/86; PULSE 52; RESP 18; TEMP 36.3; O2SAT 95
[2024-10-30 06:42] LABS: Abs Immature Grans 0.04 10^3/uL (0.0-0.06); Absolute Basophil Count 0.03 10^3/uL (0.0-0.2); Absolute Eosinophil Count 0.42 10^3/uL (0.0-0.7); Absolute Lymphocyte Count 2.19 10^3/uL (1.2-3.4); Absolute Monocyte Count 0.58 10^3/uL (0.1-0.8); Absolute Neutrophil Count 2.93 10^3/uL (1.2-6.7); Basophils % 0.5 %; Eosinophils % 6.8 %; HCT 44.7 % (40.0-50.0); Immature Grans % 0.6 %; Lymphocytes % 35.4 %; MCH 33.8 pg (27.0-33.0); MCHC 35.8 % (32.0-36.0); MCV 94 fL (80-95); MPV 8.9 fL (8.0-11.0); Monocytes % 9.4 %; Neutrophils % 47.3 %; Platelet Count 228 10^3/uL (130-400); RBC 4.74 10^6/uL (4.36-5.78); RDW 11.9 % (11.8-14.1); RDW-SD 41.5 fL; WBC 6.19 10^3/uL (4.4-10.8)
[2024-10-30 07:07] LABS: Anion Gap 6.5 mmol/L (3-11); BUN 20 mg/dL (7-18); CO2 27.5 mmol/L (21.0-32.0); CREATININE 1.1 mg/dL (0.70-1.30); Chloride 105 mmol/L (98-107); Estimated GFR 79.28 (mL/min/1.73m2); Glucose 97 mg/dL (74-106); Potassium 4.4 mmol/L (3.5-5.1); Sodium 139 mmol/L (136-145)
[2024-10-30 07:54] VITALS: BP 111/82; PULSE 56; RESP 18; TEMP 36.7; O2SAT 96
--- NOTE | 2024-10-30 10:10 | W.PM.DS.N ---
Date of service: 10/30/24 Time of Service: 12:13 DS: Diagnosis Discharge Diagnosis (1) Chest pain: Status: Acute Discharge Plan Disposition Patient Disposition: Home Condition: Improving Discharge Details Reason For Visit: Chest Pain Admit Date/Time: 10/29/24 11:07 Admit Provider: Louis Garduno Attending Provider: Louis Garduno Primary Care Provider: Mark Guerrero Home Meds and New Rx's Prescriptions: Continued albuterol sulfate 2.5 mg /3 mL (0.083 %) solution for nebulization 2.5 mg Inhalation Q6H PRN Qty: 1 3RF lisinopril 10 mg tablet 10 mg PO DAILY Qty: 90 4RF Asmanex HFA 100 mcg/actuation HFA aerosol inhaler 1 puff inhalation BID Qty: 13 6RF (DME) nebulizers [MisterNeb Nebulizer System] 1 EACH kit 1 dose Miscellaneous QID albuterol sulfate 90 mcg/actuation HFA aerosol inhaler 2 puff IH QID PRN DS: Summary Quality:SDOH Health Related Social Needs: Health related social needs problems related to housing/economic circumstances (Z59.89) Exam Narrative Exam Narrative: Constitutional The patient is sitting in chair, well groomed without acute distress HENMT: Facial structures with normal appearance Eyes: Well aligned Neuro:alert and oriented X4 Chest:Chest is symmetrical and normal appearance Resp: Normal respiratory pattern, speaks in full sentences, unlabored breathing, clear lung bilaterally Cardio: Telemetry sinusal rhythmHR 53, HI 0.20, S1, S2, no murmur GI: Abdomen is large, not distended, soft and non tender, bowel sounds are present : Negative Costovertebral angle tenderness Back/spine/Pelvis: No back tenderness, normal alignment Psych: RASS 0, congruent mood and normal affect. DS: Data Vitals/I&O Vitals and I&O: Vital Signs Temperature 36.7 C 10/30/24 07:54 Temperature Source Tympanic 10/30/24 07:54 Pulse 56 L 10/30/24 07:54 Pulse Rhythm Regular 10/29/24 12:01 Pulse 64 10/29/24 11:46 Respiratory Rate 18 10/30/24 07:54 Respiratory Effort Normal 10/29/24 12:01 Respiratory Depth Normal 10/29/24 12:01 Respiratory Pattern Normal 10/29/24 12:01 Blood Pressure 111/82 10/30/24 07:54 Blood Pressure Mean 91 10/29/24 11:46 Pulse Oximetry 96 10/30/24 07:54 Oxygen Delivery Method Room Air 10/30/24 07:54 Oxygen Flow Rate 0 10/30/24 07:54 Pain Level 0 10/30/24 07:54 Intake & Output 10/29/24 10/29/24 10/30/24 11:59 23:59 11:59 Intake Total Output Total 300 / 300 Balance -300 / -300 Weight 103 kg 101.605 kg Intake: IV Output: Urine 300 / 300 Other: Urine Color Yellow Yellow Urine Appearance Clear Clear Urine Odor None Comment pt voided independently Data Completed and Pending Labs on day of discharge: Labs from last 24 hours 10/30/24 10/29/24 10/29/24 06:20 15:15 11:04 WBC 6.19 7.58 RBC 4.74 4.80 Hgb 16.0 15.1 Hct 44.7 46.0 MCV 94 96 H D MCH 33.8 H 31.5 MCHC 35.8 D 32.8 RDW 11.9 11.9 Plt Count 228 243 MPV 8.9 8.4 Immature Gran % 0.6 0.5 Neutrophils % 47.3 50.8 Lymphocytes % 35.4 32.2 Monocytes % 9.4 10.7 Eosinophils % 6.8 5.3 Basophils % 0.5 0.5 Nucleated RBC % 0.0 0.0 Absolute Neutrophils 2.93 3.85 Absolute Lymphocytes 2.19 2.44 Absolute Monocytes 0.58 0.81 H Absolute Eosinophils 0.42 0.40 Absolute Basophils 0.03 0.04 Sodium 139 141 Potassium 4.4 4.2 Chloride 105 106 Carbon Dioxide 27.5 31.1 Anion Gap 6.5 3.9 BUN 20 H 19 H Creatinine 1.1 1.2 Est GFR (CKD-EPI 2020) 79.28 71.42 Glucose 97 92 Calcium 9.0 9.2 Magnesium 2.0 2.2 Troponin I 5 < 4 TSH 1.16 PFSH All Active Problems (Updated 10/29/24 @ 15:52 by Sheryl Tavares NP) Chest pain (Acute) Bilateral impacted cerumen (Acute) Left shoulder pain (Acute) Right knee pain (Acute) Obesity (BMI 30-39.9) (Acute) Asthma (Chronic) Hyperlipemia (Acute) Hypertension (Chronic) Family History Mother Essential hypertension Father Asthma Sister No problems noted. Sister No problems noted. Sister No problems noted. Sister No problems noted. Brother Neurological disease Brother Neurological disease Brother Neurological disease Brother Neurological disease Brother Neurological disease Social History Smoking/Tobacco Use Status: Current every day Tobacco Type: smokeless tobacco Tobacco: How many years used: 40 Smokeless tobacco user: snuff Quit status: not considering quitting Second Hand Exposure: Yes Smoking risk assessment performed?: Yes Alcohol Intake: current Alcohol Intake frequency: 3 or more drinks per day Alcohol type: beer Drug use: Never Substance use type: does not use Adopted: No Caregiver/Support person: No Household members: none Housing: house Number of Children: 3 number of grandchildren: 1 Communication Needs: Corrective Lenses Education Level: high school Do you need help understanding health information?: Rarely 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 Pets and animals: No Sexually active: Yes Do you think of yourself as: straight/heterosexual Current gender identity: male What is your relationship status?: How often do you talk on the phone with friends or family?: twice per week How often do you get together with friends or relatives?: three or more times per week How often do you attend oriental orthodox or rastafarian services?: decline to answer Do you belong to any clubs or organized social groups?: yes Panel score (0-1 are the most socially isolated patients): 2 What type of physical activity do you participate in: none Frequency: does not exercise Noelle/Buddhism: None Special noelle needs: No Seatbelt use: always Drive intox or ride w/intox local delivery driver: No Firearms in home: Yes Firearms unloaded and locked: Yes Do you feel safe at home: Yes Victim of physical abuse: No Victim of emotional abuse: No Victim of sexual abuse: No Would you like helpful sources: No
--- NOTE | 2024-10-30 11:00 | DI.US_ITS ---
APPROVED REPORT EXAM: Comprehensive 2D, Doppler, and color-flow Echocardiogram Patient Location: In-Patient Room/Bed: 230 Spray Technician: Johanna Rosario RDCS (AE) Indications: Chest pain Other Information Study Quality: Adequate. Technically limited study due to body habitus. Conclusion Normal left ventricular wall thickness and chamber size. Ejection fraction is 55%. Wall motion is n ormal Normal right ventricular size and function Both atria are normal in size There is no structural or hemodynamically significant valvular disease Wall motion Left Ventricle The left ventricle is normal size. The left ventricular systolic function is normal. The left ventric ular ejection fraction is within the normal range. There is normal left ventricular wall thickness. T here is normal LV segmental wall motion. There is no ventricular septal defect visualized. LVEF is 55 %. Right Ventricle Right ventricle is grossly normal in size. The right ventricular systolic function is normal. Atria The left atrium size is normal. The right atrium size is normal. The interatrial septum is intact wit h no evidence for an atrial septal defect. Aortic Valve The aortic valve is normal in structure. Aortic valve is trileaflet. There is no aortic valvular sten osis. No aortic regurgitation is present. Mitral Valve The mitral valve is normal in structure. No evidence of mitral valve stenosis. Trace mitral regurgita tion. Tricuspid Valve The tricuspid valve is normal in structure. There is no tricuspid valve stenosis. Trace tricuspid reg urgitation. Unable to assess PA pressure. Pulmonic Valve The pulmonary valve is normal in structure. There is no pulmonic valvular stenosis. There is no pulmo layton valvular regurgitation. Great Vessels The aortic root is normal in size. The ascending aorta is normal in size. Aortic arch is normal in ca liber. IVC is normal in size and collapses >50% with inspiration. Pericardium There is no pericardial effusion. 2D Dimensions IVSD d PLAX 0.97 cm M: 0.6-1.2 Ao Root d 2.91 cm M: 3.1 - 3.7 LVPW d PLAX 0.98 cm M: 0.6 - 1.2 Ao Asc Diam d 2.89 cm M: 2.6 - 3.4 LVID d PLAX 5.04 cm M: 4.2 - 5.8 LVDs 3.55 cm M: 2.5 - 4.0 LV EF Teichholz 56.3 % FS 29.59 % LV EDV (Teich) 120.7 mL LV ESV (Teich) 52.7 mL M-Mode TAPSE 2.39 cm (M/F) >1.7 Auto EF LV EDV A4C 139.3 mL LV EDV A2C 129.5 mL LV EDV BP 132.4 mL LV ESV A4C 64.5 mL LV ESV A2C 59.0 mL LV ESV BP 61.2 mL LVEF(%) A4C 53.7 % LVEF(%) A2C 54.5 % LVEF(%) BP 53.8 % LV SV A4C 74.8 ml LV SV A2C 70.5 ml LV SV BP 71.2 ml LV CO A4C 4.0 L/min LV CO A2C 4.3 L/min LV CO BP 4.1 L/min HR A4C 53.16 BPM HR A2C 60.71 BPM LV EDV Index (BP) LA Volume LA Length A4C 4.1 cm LA Length A2C 4.0 cm LA Area A4C s 12.74 cm2 LA Area A2C s 13.70 cm2 LA Vol A4C A-L 33.21 mL LA Vol A2C A-L 40.12 mL LA Vol Biplane A-L 37.3 mL LA Vol/BSA A4C A-L LA Vol/BSA A2C A-L LA Vol/BSA BP A-L 17.9 mL/m2 LA Vol A4C MOD 30.6 mL LA Vol A2C MOD 38.0 mL LA Vol BP MOD 34.7 mL RA Volume RA Area A4C 11.2 cm2 RA ESV A4C (A-L) 25.5mL RA Vol/BSA A4C A-L RA Length A4C 4.1 cm RA ESV A4C (MOD) 24.5mL LV Diastology MV E' medial 0.087 (>0.07 m/s) MV E Vmax 0.83 (0.4-1.3 m/s) MV E/E' MED 9.57 (<14) MV A Vmax 0.65 (0.4-1.3 m/s) MV E' lateral 0.098 (>0.1 m/s) E/A Ratio 1.3 MV E/E' LAT 8.52 (<14) MV E' Average 0.092 m/s MV E/E'(average) 9.01 Aortic Valve AoV Vmax 1.10 m/s LVOT Vmax 0.85 m/s AoV Peak Grad 4.9 mmHg LVOT Peak Grad 2.9 mmHg AoV Area (Vmax) 2.81 cm2 LVOT VTI 0.205 m AoV VTI 0.273 m LVOT Mean Grad 1.4 mmHg AoV Mean Bridger. 0.76 m/s LVOT SV 74.52 mL AoV Mean Grad 2.7 mmHg LVOT Diam s 2.15 cm AoV Area (VTI) 2.73 cm2 AV Regurg Peak Gr. 4.85 mmHg Velocity Ratio 0.77 Mitral Valve MV DT 225 (160-240 msec) MV Vmax TIPS 0.85 m/s MV Mean Grad 1.3 (<2mmHg) MV VTI 0.321 m Pulmonary Valve PV Vmax 1.28 (0.5-1.5 m/s) RVOT Vmax 0.57 m/s PV Peak Grad 6.6 mmHg RVOT Peak Gr. 1.3 mmHg PV Mean Bridger 0.96 m/s RVOT VTI 0.118 m PV Mean Grad 4.0 mmHg RVOT Mean Gr. 0.9 mmHg Tricuspid Valve RA Pressure 3.00 mmHg TV S' 0.12 m/s
--- NOTE | 2024-10-30 11:26 | PDOC.CMIN ---
Date of service: 10/30/24 Time of Service: 11:26 Care Management Initial Assmt Initial Assessment Reason for Hospitalization: chest pain Functional Status/Living Situation Town of Residence: [place] Instrumental Activities of Daily Living (ADLs): Independent Medications Medication Management: No Issues/Barriers identified Advance Directives Advance Directives: Do you have an Advance Directive: N 08/22/13 13:08 AD On File at [facility]: N 01/26/13 11:21 Date Asked 10/29/24 10/29/24 07:33 AD Date Reviewed COLST On File at [facility] COLST Date Scanned Code Status Resuscitation Status Full Code Portal Pt does not currently have a portal and education provided: No Insurance Coverage/Financial Issues Insurance: Medicaid Care Team Visit Care Team Role Provider Type Mark Guerrero NP Primary Care Provider NURSE PRACTITIONER Ozzy Luu MD Emergency Provider [facility] STAFF PHYSICIAN Louis Garduno MD Admit Provider [facility] STAFF PHYSICIAN Attending Provider Discharge Potential Discharge Needs: PCP F/U Appt and Other (Cardiology) Anticipated Barriers to Discharge: None Identified Patient/Family Education Needs: Review discharge instructions, discuss Ask Me Three Transportation: Private vehicle Plan: Anticipate Mary Jane will be discharged home with no new services when medically stable. She will follow up with her PCP and plan of care and transport withj family. CM will follow. Social Determinants of Health Screening Social Determinants of Health last assessed: 10/30/24 Will the Patient Participate in the Screening?: Yes Do you worry about having a steady place to live?: no Problems where you live: no known problems In the past 12 months, have you had to go without electric, gas, oil or water in your home?: no Have you or anyone in your house had to go without enough food to eat?: no Has lack of transportation kept you from medical appointments or from doing things needed for daily living?: no Has anyone in your life made you feel unsafe or unsupported?: no How hard is it for you to pay for the very basics like food, housing, medical care, and heating? Would you say it is:: Somewhat hard Do you want help finding or keeping work or a job?: I do not need or want help If for any reason you need help with day-to-day activities such as bathing, preparing meals, shopping, managing finances, etc., do you get the help you need?: I don?t need any help How often do you feel lonely or isolated from those around you?: Never Do you speak a language other than Finnish at home?: No Does the patient want assistance with any of the above?: No Health Related Social Needs Health related social needs: problems related to housing/economic circumstances (Z59.89) PFSH All Active Problems (Updated 10/29/24 @ 15:52 by Sheryl Tavares NP) Chest pain (Acute) Bilateral impacted cerumen (Acute) Left shoulder pain (Acute) Right knee pain (Acute) Obesity (BMI 30-39.9) (Acute) Asthma (Chronic) Hyperlipemia (Acute) Hypertension (Chronic) Family History Mother Essential hypertension Father Asthma Sister No problems noted. Sister No problems noted. Sister No problems noted. Sister No problems noted. Brother Neurological disease Brother Neurological disease Brother Neurological disease Brother Neurological disease Brother Neurological disease Social History Smoking/Tobacco Use Status: Current every day Tobacco Type: smokeless tobacco Tobacco: How many years used: 40 Smokeless tobacco user: snuff Quit status: not considering quitting Second Hand Exposure: Yes Smoking risk assessment performed?: Yes Alcohol Intake: current Alcohol Intake frequency: 3 or more drinks per day Alcohol type: beer Drug use: Never Substance use type: does not use Adopted: No Caregiver/Support person: No Household members: none Housing: house Number of Children: 3 number of grandchildren: 1 Communication Needs: Corrective Lenses Education Level: high school Do you need help understanding health information?: Rarely 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 Pets and animals: No Sexually active: Yes Do you think of yourself as: straight/heterosexual Current gender identity: male What is your relationship status?: How often do you talk on the phone with friends or family?: twice per week How often do you get together with friends or relatives?: three or more times per week How often do you attend catholic or church services?: decline to answer Do you belong to any clubs or organized social groups?: yes Panel score (0-1 are the most socially isolated patients): 2 What type of physical activity do you participate in: none Frequency: does not exercise Noelle/Rastafarian: None Special noelle needs: No Seatbelt use: always Drive intox or ride w/intox stake driver: No Firearms in home: Yes Firearms unloaded and locked: Yes Do you feel safe at home: Yes Victim of physical abuse: No Victim of emotional abuse: No Victim of sexual abuse: No Would you like helpful sources: No
--- NOTE | 2024-10-30 12:30 | DSE_ITS ---
Date of service: 10/30/24 Time of Service: 12:31 DS: Diagnosis Discharge Diagnosis (1) Chest pain: Status: Acute Discharge Plan Disposition Patient Disposition: Home Condition: Improving Discharge Details Reason For Visit: Chest Pain Admit Date/Time: 10/29/24 11:07 Admit Provider: Louis Garduno Attending Provider: Louis Garduno Primary Care Provider: Mark Guerrero Hospital Course Hospital Course: This 64-year-old male patient with a past medical history of hypertension, hyperlipidemia, obesity, and asthma presented to the ED at [facility] on 10/29/2024 around 7:30 AM for evaluation of left upper arm and left chest pain at 8/10 starting 2 hours prior to presentation, radiating from left upper arm arm to left chest, without precipitating factor but intensifying with deep breathing. Pain was initiated daily noticed during ambulation without exertion; no associated factor of shortness of breath, nausea, diaphoresis, leg swelling reported. The patient presented to the ED with hypertension without hypoxia nor respiratory distress. The patient received aspirin and nitroglycerin in the ED. Pain subsided to 2/10. Workup in the ED included an EKG showing sinus rhythm at 84 with normal axis without sign of acute myocardial injury. Troponins were negative x 2. Chest x- ray showed no acute findings as per radiologist reading. Concern of ACS will pertinent for this patient with symptoms and significant cardiovascular factors. The HEART score was elevated warranting further workup for ACS. The patient was admitted to the medical surgical floor with telemetry for evaluation and management of chest pain/ACS rule out NC. The third troponin was negative. The patient had no further symptoms and was normotensive this AM. Stress test was completed and showed no electrographic evidence of myocardial ischemia with patient achieving 88% of maximum predicted for age.The echocardiogram showed an LVEF of 55%, normal LV segmental wall motion and without ventricular septal defect. No pericardial effusion seen and no no significant valvular abnormality. The patient will be discharged home today with a follow up within 7 days with his PCP. Discussed with Dr. Cosme Home Meds and New Rx's Prescriptions: Continued albuterol sulfate 2.5 mg /3 mL (0.083 %) solution for nebulization 2.5 mg Inhalation Q6H PRN Qty: 1 3RF lisinopril 10 mg tablet 10 mg PO DAILY Qty: 90 4RF Asmanex HFA 100 mcg/actuation HFA aerosol inhaler 1 puff inhalation BID Qty: 13 6RF (DME) nebulizers [MisterNeb Nebulizer System] 1 EACH kit 1 dose Miscellaneous QID albuterol sulfate 90 mcg/actuation HFA aerosol inhaler 2 puff IH QID PRN Discharge Instructions Stand Alone Forms: Nursing Discharge Form Referrals: Mark Guerrero, [facility] [Primary Care Provider] - 11/13/24 9:20 am Activity:: Activity as Tolerated Equipment/Supplies:: No Equipment Needed Diet:: As Tolerated Discharge Orders Discharge Orders: Discharge Order (Routine); Ordered 10/30/24 Ordered By: Lisa Stallings DS: Summary Time Spent with Patient providing and/or coordinating discharge services: Greater than 30 minutes Status at Discharge Functional status at discharge: independent ambulation Overall status at discharge: patient is back to baseline Mental Status: mental status grossly normal Speech and Movement: speech and movement normal Mood: congruent mood Affect: normal affect Quality:SDOH Health Related Social Needs: Health related social needs problems related to housin g/economic circumstances (Z59.89) Exam Narrative Exam Narrative: Exam Narrative: Constitutional The patient is sitting in chair, well groomed without acute distress HENMT: Facial structures with normal appearance Eyes: Well aligned Neuro:alert and oriented X4 Chest:Chest is symmetrical and normal appearance Resp: Normal respiratory pattern, speaks in full sentences, unlabored breathing, clear lung bilaterally Cardio: Telemetry sinusal rhythmHR 53, [place] 0.20, S1, S2, no murmur GI: Abdomen is large, not distended, soft and non tender, bowel sounds are present : Negative Costovertebral angle tenderness Back/spine/Pelvis: No back tenderness, normal alignment Psych: RASS 0, congruent mood and normal affect. Psych Mental Status: mental status grossly normal Speech and Movement: speech and movement normal Mood: congruent mood Affect: normal affect DS: Data Vitals/I&O Vitals and I&O: Vital Signs Temperature 36.7 C 10/30/24 07:54 Temperature Source Tympanic 10/30/24 07:54 Pulse 56 L 10/30/24 07:54 Pulse Rhythm Regular 10/29/24 12:01 Pulse 64 10/29/24 11:46 Respiratory Rate 18 10/30/24 07:54 Respiratory Effort Normal 10/29/24 12:01 Respiratory Depth Normal 10/29/24 12:01 Respiratory Pattern Normal 10/29/24 12:01 Blood Pressure 111/82 10/30/24 07:54 Blood Pressure Mean 91 10/29/24 11:46 Pulse Oximetry 96 10/30/24 07:54 Oxygen Delivery Method Room Air 10/30/24 07:54 Oxygen Flow Rate 0 10/30/24 07:54 Pain Level 0 10/30/24 07:54 Intake & Output 10/29/24 10/30/24 10/30/24 23:59 11:59 23:59 Output Total 300 / 300 Balance -300 / -300 Weight 101.605 kg Output: Urine 300 / 300 Other: Urine Color Yellow Yellow Urine Appearance Clear Clear Urine Odor None Comment pt voided independently Data Completed and Pending Labs on day of discharge: Labs from last 24 hours 10/30/24 10/29/24 06:20 15:15 WBC 6.19 7.58 RBC 4.74 4.80 Hgb 16.0 15.1 Hct 44.7 46.0 MCV 94 96 H D MCH 33.8 H 31.5 MCHC 35.8 D 32.8 RDW 11.9 11.9 Plt Count 228 243 MPV 8.9 8.4 Immature Gran % 0.6 0.5 Neutrophils % 47.3 50.8 Lymphocytes % 35.4 32.2 Monocytes % 9.4 10.7 Eosinophils % 6.8 5.3 Basophils % 0.5 0.5 Nucleated RBC % 0.0 0.0 Absolute Neutrophils 2.93 3.85 Absolute Lymphocytes 2.19 2.44 Absolute Monocytes 0.58 0.81 H Absolute Eosinophils 0.42 0.40 Absolute Basophils 0.03 0.04 Sodium 139 141 Potassium 4.4 4.2 Chloride 105 106 Carbon Dioxide 27.5 31.1 Anion Gap 6.5 3.9 BUN 20 H 19 H Creatinine 1.1 1.2 Est GFR (CKD-EPI 2020) 79.28 71.42 Glucose 97 92 Calcium 9.0 9.2 Magnesium 2.0 2.2 Troponin I 5 TSH 1.16 PFSH All Active Problems (Updated 10/30/24 @ 13:00 by Lisa Stallings APRN) Chest pain (Acute) Bilateral impacted cerumen (Acute) Left shoulder pain (Acute) Right knee pain (Acute) Obesity (BMI 30-39.9) (Acute) Asthma (Chronic) Hyperlipemia (Acute) Hypertension (Chronic) Family History Mother Essential hypertension Father Asthma Sister No problems noted. Sister No problems noted. Sister No problems noted. Sister No problems noted. Brother Neurological disease Brother Neurological disease Brother Neurological disease Brother Neurological disease Brother Neurological disease Social History Smoking/Tobacco Use Status: Current every day Tobacco Type: smokeless tobacco Tobacco: How many years used: 40 Smokeless tobacco user: snuff Quit status: not considering quitting Second Hand Exposure: Yes Smoking risk assessment performed?: Yes Alcohol Intake: current Alcohol Intake frequency: 3 or more drinks per day Alcohol type: beer Drug use: Never Substance use type: does not use Adopted: No Caregiver/Support person: No Household members: none Housing: house Number of Children: 3 number of grandchildren: 1 Communication Needs: Corrective Lenses Education Level: high school Do you need help understanding health information?: Rarely 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 Pets and animals: No Sexually active: Yes Do you think of yourself as: straight/heterosexual Current gender identity: male What is your relationship status?: How often do you talk on the phone with friends or family?: twice per week How often do you get together with friends or relatives?: three or more times per week How often do you attend nondenominational or sabianist services?: decline to answer Do you belong to any clubs or organized social groups?: yes Panel score (0-1 are the most socially isolated patients): 2 What type of physical activity do you participate in: none Frequency: does not exercise Noelle/Druze: None Special noelle needs: No Seatbelt use: always Drive intox or ride w/intox driver manager: No Firearms in home: Yes Firearms unloaded and locked: Yes Do you feel safe at home: Yes Victim of physical abuse: No Victim of emotional abuse: No Victim of sexual abuse: No Would you like helpful sources: No Time Spent with Patient Time Spent with Patient: 70-84 minutes4 Time was spent: preparing to see the patient(eg.review tests), obtaining and/or reviewing separately otained hiistory, ordering medications,tests, procedures, referring, communicating with other health career development consultant, indepentently interpreting results, counseling the patient and care coordination
[2024-10-30] MEDS: Lisinopril 10 MG TAB PO (13:21)
--- NOTE | 2024-10-30 14:27 | CHAPLAIN ---
I had a brief visit with Mary Jane while he was waiting for his ride home. He came to the ED yesterday with check pains and said it was a little scare that he thought he should get checked out. He's all set to go home as son as his daughter arrives.
--- NOTE | 2024-10-30 15:05 | CMPROGNOTE_ITS ---
Date of service: 10/30/24 Time of Service: 15:05 Care Management Progress Note Progress Note Text Progress Note Text: Mary Jane was admitted on 10/29 with chest pain. He had an EKG, chest Xray, Echocardiogram, blood work and a stress test, all of which were reassuring. Mary Jane will be discharged home with no new services. He will follow up with his community providers and plan of care and transport with family. Mary Jane was discharged before CM was able to meet with him. Information obtained from chart review and discussion with staff and providers. Social Determinants of Health Screening Social Determinants of Health last assessed: 10/30/24 Will the Patient Participate in the Screening?: Yes Do you worry about having a steady place to live?: no Problems where you live: no known problems In the past 12 months, have you had to go without electric, gas, oil or water in your home?: no Have you or anyone in your house had to go without enough food to eat?: no Has lack of transportation kept you from medical appointments or from doing things needed for daily living?: no Has anyone in your life made you feel unsafe or unsupported?: no How hard is it for you to pay for the very basics like food, housing, medical care, and heating? Would you say it is:: Somewhat hard Do you want help finding or keeping work or a job?: I do not need or want help If for any reason you need help with day-to-day activities such as bathing, preparing meals, shopping, managing finances, etc., do you get the help you need?: I don?t need any help How often do you feel lonely or isolated from those around you?: Never Do you speak a language other than Slovenian at home?: No Does the patient want assistance with any of the above?: No Health Related Social Needs Health related social needs: problems related to housing/economic circumstances (Z59.89)
== END 2024-10-30 14:34 | disposition home or self-care (01) ==
LOC: ER 11:19 → MS 11:58
PROVIDERS: Nurse Practitioner Family; Admitting Provider Hospitalist; Emergency Provider Student in an Organized Health Care Education/Training Program; PCP Nurse Practitioner Family; Visit Provider Hospitalist
DX: R07.89 Other chest pain (principal); R94.31 Abnormal electrocardiogram [ECG] [EKG]; E78.5 Hyperlipidemia, unspecified; I10 Essential (primary) hypertension; J45.909 Unspecified asthma, uncomplicated; E66.9 Obesity, unspecified; Z68.37 Body mass index [BMI] 37.0-37.9, adult; M25.512 Pain in left shoulder; F17.220 Nicotine dependence, chewing tobacco, uncomplicated; Z79.899 Other long term (current) drug therapy
CPT/HCPCS: 00123; 36415; 80048; 80053; 93005; 96372; 99285; J1650; 71045; 83735; 84443; 84484; 85025; 85379; 85730; 93010; 93017; 93306; 99222; 99239; G0378

== ENCOUNTER 2025-05-14 02:45 | Outpatient (CLI) | payer SELFPAY ==
[2025-05-14 12:49] LABS: Hemoglobin A1C 5.6 % (<5.7)
[2025-05-14 12:53] LABS: Calculated LDL 114 mg/dL (<100); Cholesterol 169 mg/dL (<200); HDL Cholesterol 42 mg/dL (>or=40); Triglyceride 69 mg/dL (<150)
== END 2025-05-14 02:46 | disposition home or self-care (01) ==
LOC: LOS 02:45
PROVIDERS: PCP Nurse Practitioner Family; Visit Provider Nurse Practitioner Family
DX: Z13.220 Encounter for screening for lipoid disorders (principal); Z13.1 Encounter for screening for diabetes mellitus
CPT/HCPCS: 36415; 80061; 83036